=== PATIENT | male | born 1940 | race Caucasian/White ===

== ENCOUNTER → 2018-01-26 09:47 | Outpatient (CLI) | payer OTHER | END | disposition home or self-care (01) | LOC: LAB 09:47 | DX: R97.20 Elevated prostate specific antigen [PSA] (principal) ==

== ENCOUNTER 2018-01-29 09:47 | Outpatient (CLI) | payer OTHER | END 2018-01-29 13:16 | disposition home or self-care (01) | LOC: SONOGRAMA 09:47 | DX: C61 Malignant neoplasm of prostate (principal) ==

== ENCOUNTER 2018-12-21 13:56 | Outpatient (CLI) | payer OTHER | END 2018-12-21 14:11 | disposition home or self-care (01) | LOC: LAB 13:56 | DX: N30.00 Acute cystitis without hematuria (principal) ==